=== PATIENT | male | born 1980 | race African-American/Black ===

== ENCOUNTER 2016-08-23 14:10 | Emergency (ER) | payer OTHER ==
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
[~2016-08-23 14:10] MED LIST: FLEXERIL10 MG PO
== END 2016-08-23 16:04 | disposition home or self-care (01) ==
LOC: SED 14:10
DX: S69.92XA Unspecified injury of left wrist, hand and finger(s), initial encounter (principal); S62.343A Nondisplaced fracture of base of third metacarpal bone, left hand, initial encounter for closed fracture; S62.345A Nondisplaced fracture of base of fourth metacarpal bone, left hand, initial encounter for closed fracture; F17.210 Nicotine dependence, cigarettes, uncomplicated; S62.347A Nondisplaced fracture of base of fifth metacarpal bone, left hand, initial encounter for closed fracture; Z90.5 Acquired absence of kidney; Y04.0XXA Assault by unarmed brawl or fight, initial encounter; Y92.009 Unspecified place in unspecified non-institutional (private) residence as the place of occurrence of the external cause
CPT/HCPCS: 29280; 73130; 99284

== ENCOUNTER 2016-09-22 00:28 | Emergency (ER) | payer OTHER ==
[2016-09-22] MEDS ORDERED: NO MEDICATIONS (00:34)
== END 2016-09-22 00:57 | disposition home or self-care (01) ==
LOC: SED 00:28
DX: G89.18 Other acute postprocedural pain (principal); M79.602 Pain in left arm; F17.210 Nicotine dependence, cigarettes, uncomplicated
CPT/HCPCS: 29280; 99283